=== PATIENT | male | born 1965 | race Caucasian/White ===

== ENCOUNTER 2019-11-22 10:24 | Day surgery (SDC) | payer BC ==
[~2019-11-22] VITALS: Ht 188 cm; Wt 114.7 kg
[2019-11-22] VITALS (9 sets, daily range): BP systolic 112–136; BP diastolic 69–80; PULSE 57–74; TEMP 98.4
[~2019-11-22 10:24] MED LIST: CEPHALEXIN500 M1 PO; DOXYCYCLINE 10100 MG PO; FERROUS SU325 MG/TAB PO; NO HOME MEDICATIONS; PERCOCET 325 MG1 TA2 PO; PROTONIX20 MG PO
[2019-11-22] MEDS ORDERED: PRILOSEC 20MG20 MG PO (10:36)
[2019-11-22] MEDS ORDERED: NATURAL IRON65 MG PO (11:15)
[2019-11-22 11:17] LABS: HEMOGLOBIN 10.4 g/dl (13.5-18.0); INR 1.1 (0.8-3.0); MEAN CELL VOLUME 77 fl (80.0-100.0); MEAN CORPUSCULAR HEMOGLOBIN 23 pg (27.0-31.0); MEAN CORPUSCULAR HGB CONC 30 g/dl (33.0-37.0); MEAN PLATELET VOLUME 10.1 fl (7.4-10.4); PLATELET COUNT 338 K/mm3 (130-400); RED BLOOD COUNT 4.45 M/mm3 (4.20-5.60); REDCELL DISTRIBUTION WIDTH-CV 17.6 % (11.5-14.5)
[2019-11-22 11:19] LABS: HEMATOCRIT 34.4 % (42.0-52.0)
[2019-11-22 11:25] LABS: ALBUMIN 3.8 gm/dL (3.5-5.0); BILIRUBIN,TOTAL 0.4 mg/dL (0.0-1.0); CREATININE, serum 0.67 (0.66-1.25); POTASSIUM 4.1 mmol/L (3.4-5.0); TOTAL PROTEIN 7.3 gm/dL (6.4-8.2)
--- NOTE | 2019-11-22 14:26 | NUR ---
SEE MERGE FOR MEDICATION ADMINISTRATION TIMES AND INTRA AND POST SEDATION ASSESSMENTS.
[2019-11-22] MEDS ORDERED: ASPIRIN 32325 MG/TA1 PO (14:59)
--- NOTE | 2019-11-22 15:15 | NUR ---
REPORT FROM MARK ANTHONY HARPER. PT BACK FROM [facility] [employer], HE IS AWAKE AND ALERT, PWD, TR BAND IN PLACE, CMS INTACT DISTAL. NO COMPLAINTS. WCTM.
--- NOTE | 2019-11-22 18:40 | NUR ---
Pt is ready for departure at this time, to exit via [place]. pt has been able to eat and drink with no problem. he has been amb with steady gait. his TR band was deflated with no bleeding or hematoma and site dressed with bandaid and light compression dressing of 2x2 and coban. cms remains intact distal. site is soft. pt denied questions about dc/fu instructions. iv was dc'd with cath intact, dressing was applied.
== END 2019-11-22 18:50 | disposition home or self-care (01) ==
LOC: COL.CAR 10:24
PROVIDERS: Internal Medicine Cardiovascular Disease
DX: I25.10 Atherosclerotic heart disease of native coronary artery without angina pectoris (principal); R94.39 Abnormal result of other cardiovascular function study; F17.210 Nicotine dependence, cigarettes, uncomplicated; K64.9 Unspecified hemorrhoids
CPT/HCPCS: J1644; J2250; J3010; Q9967